=== PATIENT | male | born 1990 | race Caucasian/White ===

== ENCOUNTER 2020-02-14 22:00 | Emergency (ER) | payer SELFPAY ==
[~2020-02-14] VITALS: Ht 185.4 cm; Wt 162.4 kg
[2020-02-14 22:10] VITALS: Ht 185.4 cm; Wt 162.4 kg
[2020-02-15 00:29] VITALS: BP 134/81
== END 2020-02-15 00:29 | disposition home or self-care (01) ==
LOC: ED 22:00
DX: R05 Cough (principal); R07.89 Other chest pain; R68.83 Chills (without fever); Z20.828 Contact with and (suspected) exposure to other viral communicable diseases; F12.90 Cannabis use, unspecified, uncomplicated
CPT/HCPCS: U0003